=== PATIENT | male | born 2000 ===

== ENCOUNTER 2020-07-25 15:56 | Emergency (ER) | payer OTHER ==
--- NOTE | 2020-07-25 17:10 | ER ---
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 Coronavirus screen: Client denies travel out of the [place] in the last 14 days. At this time, the client does not indicate any symptoms associated with coronavirus-19. Ebola Screen: Patient negative for fever greater than or equal to 101.5 degrees Fahrenheit, and additional compatible Ebola Virus Disease symptoms Patient denies exposure to infectious person. Patient denies travel to an Ebola-affected area in the 21 days before illness onset. No symptoms or risks identified at this time. Initial Sepsis Screen: Does the patient meet any 2 criteria? No. Patient's initial sepsis screen is negative. Does the patient have a suspected source of infection? No. Patient's initial sepsis screen is negative. Risk Assessment: Do you want to hurt yourself or someone else? Patient reports no desire to harm self or others. Onset of symptoms was July 25, 2020. 16:28 Method Of Arrival: Ambulatory ca1 16:28 Acuity: TEMITOPE 4 ca1 Historical: - Allergies: 16:29 No Known Allergies; ca1 - Home Meds: 16:29 None [Active]; ca1 - PMHx: 16:29 None; ca1 - PSHx: 16:29 None; ca1 - Immunization history:: Adult Immunizations up to date, Flu vaccine is up to date. Last tetanus immunization: unknown. - Social history:: Smoking status: Patient denies any tobacco usage or history of. Screenin:45 Abuse screen: Denies threats or abuse. Denies injuries from another. Nutritional jl7 screening: No deficits noted. Tuberculosis screening: No symptoms or risk factors identified. Fall Risk None identified. Assessment: 16:45 General: Appears in no apparent distress. uncomfortable, Behavior is calm, cooperative, jl7 appropriate for age. Pain: Denies pain. Neuro: Level of Consciousness is awake, alert, obeys commands, Oriented to person, place, time, situation. Cardiovascular: Patient's skin is warm and dry. Respiratory: Airway is patent Respiratory effort is even, unlabored, Respiratory pattern is regular, symmetrical. Musculoskeletal: Range of motion: intact in all extremities. Injury Description: Abrasion. Vital Signs: 16:28 BP 108 / 76; Pulse 83; Resp 16 S; Temp 98.5(TE); Pulse Ox 99% on R/A; Weight 68.04 kg ca1 (R); Height 5 ft. 4 in. (162.56 cm) (R); Pain 0/10; 16:28 Body Mass Index 25.75 (68.04 kg, 162.56 cm) ca1 ED Course: 16:01 Patient arrived in ED. bg2 16:29 Triage completed. ca1 16:29 Arm band placed on right wrist. ca1 16:44 Rosy Scales [facility]-C [facility]. kb 16:44 Tadeo Kaiser MD is Attending Physician. kb 16:44 Michael Hutson RN is Primary Nurse. jl7 16:45 Patient has correct armband on for positive identification. Placed in gown. Bed in low jl7 position. Call light in reach. Side rails up X 1. 17:22 No provider procedures requiring assistance completed. Patient did not have IV access jl7 during this emergency room visit. Administered Medications: 17:15 Drug: Tetanus-Diphtheria Toxoid Adult 0.5 ml {Pharmaceutical Engineer: [employer]. Exp: jl7 10/13/2021. Lot #: [id number]. } Route: IM; Site: right deltoid; 17:22 Follow up: Response: No adverse reaction jl7 Outcome: 17:09 Discharge ordered by . kb 17:22 Discharged to home ambulatory. jl7 17:22 Condition: stable 17:22 Discharge instructions given to patient, Instructed on discharge instructions, follow up and referral plans. Demonstrated understanding of instructions, follow-up care. 17:23 Patient left the ED. jl7 Signatures: Rosy Scales FNP-C FNP-Nicolette Berry 2 Michael Hutson, PAOLA RN jl7 Cathy Chery RN RN ca1
--- NOTE | 2020-07-25 17:10 | EDPHYS ---
Physician Documentation [facility] Name: Eitan Mart Age: 20 yrs Sex: Male : 2000 Arrival Date: 07/25/2020 Time: 16:01 Bed 16 Private MD: ED Physician Tadeo Kaiser HPI: 07/25 19:35 This 20 yrs old Male presents to ER via Ambulatory with complaints of Finger Injury. kb 19:35 The patient has a laceration related to: doing yard work, occurred outdoors, and there kb are no complicating factors. The laceration(s) is(are) located on the dorsal aspect of middle phalanx of left index finger. Onset: The symptoms/episode began/occurred just prior to arrival. Associated signs and symptoms: The patient has no apparent associated signs or symptoms. The patient has not experienced similar symptoms in the past. The patient has not recently seen a physician. 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 Laceration is well approximated and is not able to be opened. Pt states he came in to get a tetanus shot. Historical: - Allergies: 16:29 No Known Allergies; ca1 - Home Meds: 16:29 None [Active]; ca1 - PMHx: 16:29 None; ca1 - PSHx: 16:29 None; ca1 - Immunization history:: Adult Immunizations up to date, Flu vaccine is up to date. Last tetanus immunization: unknown. - Social history:: Smoking status: Patient denies any tobacco usage or history of. ROS: 19:33 Constitutional: Negative for fever, chills, and weight loss, MS/Extremity: Negative for kb injury and deformity, Neuro: Negative for headache, weakness, numbness, tingling, and seizure. 19:33 Skin: Positive for laceration(s), of the dorsal aspect of middle phalanx of left index finger. Exam: 19:34 Constitutional: This is a well developed, well nourished patient who is awake, alert, kb and in no acute distress. Head/Face: Normocephalic, atraumatic. Respiratory: Respirations even and unlabored. No increased work of breathing, no retractions or nasal flaring. MS/ Extremity: Pulses equal, no cyanosis. Neurovascular intact. Full, normal range of motion. Neuro: Awake and alert, GCS 15, oriented to person, place, time, and situation. Moves all extremities. Normal gait. 19:34 Skin: injury, laceration(s), the wound is approximately 2 cm(s), of the dorsal aspect of middle phalanx of left index finger, that can be described as clean, no foreign body, linear, without bleeding, approximated. Vital Signs: 16:28 BP 108 / 76; Pulse 83; Resp 16 S; Temp 98.5(TE); Pulse Ox 99% on R/A; Weight 68.04 kg ca1 (R); Height 5 ft. 4 in. (162.56 cm) (R); Pain 0/10; 16:28 Body Mass Index 25.75 (68.04 kg, 162.56 cm) ca1 MDM: 16:44 Patient medically screened. kb 19:33 Data reviewed: vital signs, nurses notes. Data interpreted: Pulse oximetry: on room air kb is 99 %. Interpretation: normal. Counseling: I had a detailed discussion with the patient and/or guardian regarding: the historical points, exam findings, and any diagnostic results supporting the discharge/admit diagnosis, the need for outpatient follow up, a family practitioner, to return to the emergency department if symptoms worsen or persist or if there are any questions or concerns that arise at home. 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 Exp: jl7 10/13/2021. Lot #: [id number]. } Route: IM; Site: right deltoid; 17:22 Follow up: Response: No adverse reaction jl7 Disposition: 07/25/20 17:09 Discharged to Home. Impression: Laceration without foreign body of left index finger without damage to nail. - Condition is Stable. - Discharge Instructions: Laceration Care, Adult, [id number]. - Medication Reconciliation Form, Thank You Letter, Antibiotic Education, Prescription Opioid Use form. - Follow up: Emergency Department; When: As needed; Reason: Worsening of condition. Follow up: Private Physician; When: 2 - 3 days; Reason: Recheck today's complaints, Continuance of care, Re-evaluation by your physician. Addendum: 07/26/2020 19:27 Co-signature as Attending Physician, Tadeo Kaiser MD I agree with the assessment and t w4 plan of care. Signatures: Rosy Scales, REGISTERED NURSE MIDWIFE-C REGISTERED NURSE MIDWIFE-Ckb Michael Hutson RN RN jl7 Tadeo Kaiser MD MD tw4 Cathy Chery RN RN ca1 Corrections: (The following items were deleted from the chart) 07/25 17:23 17:09 07/25/2020 17:09 Discharged to Home. Impression: Laceration without foreign body jl7 of left index finger without damage to nail. Condition is Stable. Forms are Medication Reconciliation Form, Thank You Letter, Antibiotic Education, Prescription Opioid Use. Follow up: Emergency Department; When: As needed; Reason: Worsening of condition. Follow up: Private Physician; When: 2 - 3 days; Reason: Recheck today's complaints, Continuance of care, Re-evaluation by your physician. kb
[2020-07-25 17:28] VITALS: BP 108/76; TEMP 98.5; O2SAT 99
[2020-07-25] MEDS ORDERED: TETANUS & DIPHTHERIA TOX,ADULT 0.5 ML VIAL ONE (17:30)
== END 2020-07-25 17:23 | disposition home or self-care (01) ==
LOC: ER 15:56
DX: S61.211A Laceration without foreign body of left index finger without damage to nail, initial encounter (principal); W26.8XXA Contact with other sharp object(s), not elsewhere classified, initial encounter; Y93.89 Activity, other specified; Y92.89 Other specified places as the place of occurrence of the external cause; Z23 Encounter for immunization
CPT/HCPCS: 90471; 90714; 99283